=== PATIENT | female | born 1975 | race Caucasian/White ===

== ENCOUNTER → 2021-05-29 | Outpatient (CLI) | payer OTHER ==
[2021-05-30 17:57] LABS: African American GFR (CKD) 62.8 (60.0-200.0); Albumin/Globulin Ratio 1.39 (1.60-3.17); Anion Gap 14.7 mmol/L (4.00-12.00); BUN/Creat Ratio 13.33 Ratio (12.00-20.00); Calcium 9.6 mg/dL (8.7-10.3); Carbon Dioxide 18.3 mmol/L (21.6-31.8); Globulin 3.6 g/dL (1.6-3.3); Non-African American GFR(CKD) 54.2 (60.0-200.0); Potassium 4.3 mmol/L (3.5-5.5); Total Bilirubin 0.3 mg/dL (0.3-1.2); Total Protein 8.6 g/dL (6.2-8.2)
== END | disposition home or self-care (01) ==
LOC: LABWHC1 14:57
PROVIDERS: ATTEND Family Medicine
DX: F11.21 Opioid dependence, in remission (principal)
CPT/HCPCS: 36415; 80053